=== PATIENT | male | born 1990 | race Caucasian/White ===

== ENCOUNTER 2020-04-05 11:12 | Emergency (ER) | payer BC, SELFPAY ==
[2020-04-05 11:20] VITALS: BP 167/94; PULSE 90; RESP 20; TEMP 36.4; O2SAT 99; BMI 32.6
--- NOTE | 2020-04-05 11:30 | W.ED.EXTPRO ---
HPI - Extremity Problem General: Chief complaint: Extremity Injury, Upper Stated complaint: FINGER LACERATION Time Seen by Provider: 04/05/20 11:30 Source: patient Mode of arrival: ambulatory Limitations: no limitations History of Present Illness: HPI Narrative: Patient presents with amputation of the tip of the left thumb. Patient reports catching the thumb between 2 pieces of metal post. Patient appears well. Patient appears in moderate pain. Review of Systems General: Reports: 10 or more systems reviewed and unremarkable except in HPI and below Musc: Reports: other (Left thumb tip amputation.) Physical Exam Const: COMMON NORMALS: no acute distress and patient oriented x3 GENERAL APPEARANCE: cooperative HENMT: COMMON NORMALS: normocephalic and Normal external nose present HEAD & SCALP: normal to inspection and normocephalic NOSE: Normal external nose present MOUTH: Normal oral and palatal mucosa present Eye: GENERAL EYE: appearance normal, both eyes and all related structures Neck/C-Spine: COMMON NORMALS: full ROM Chest: COMMONS NORMALS: normal inspection of the chest Resp: COMMON NORMALS: normal respiratory effort EFFORT & INSPECTION: Yes able to speak in complete sentences Cardio: COMMON NORMALS: regular rate and regular rhythm RATE: regular rate RHYTHM: regular rhythm GI: COMMON NORMALS: non-tender Back/Pelvis: COMMON NORMALS: thoracic and lumbar spine normal to inspection Extremity: COMMON NORMALS: normal to inspection Neuro: COMMON NORMALS: patient oriented x3 and moves all extremities Psych: COMMON NORMALS: mental status grossly normal and cooperative Skin: NARRATIVE SKIN EXAM: Distal tip of the left thumb is amputated with exposure of the bone and nailbed. Course Vital Signs: Vital signs: Vital Signs Temperature 97.5 F L 04/05/20 11:20 Pulse Rate 68 04/05/20 12:00 Respiratory Rate 20 H 04/05/20 11:20 Blood Pressure 167/94 04/05/20 11:20 Pulse Oximetry 99 04/05/20 11:20 MDM - Extremity (Nontraumatic) MDM Narrative: Medical decision making narrative: Patient presents with injury to the distal left thumb. On exam patient has laceration/avulsion of the tip of the left thumb. Patient has normal range of motion of the thumb. Some nail damage is noted. X-ray noted no injury to the bone but tissue is moved away from the bone. Differential diagnosis includes fracture, foreign body, amputation. Reviewed exam with patient with recommendations for treatment and follow-up. Patient was recommended to follow-up with wound care specialty. Patient reported understanding of care plan and would follow-up with primary care. Discharge Plan Discharge Patient Disposition: Home Clinical Impression: Avulsion of finger tip Qualifiers: Encounter type: initial encounter Qualified Code(s): S61.209A - Unspecified open wound of unspecified finger without damage to nail, initial encounter Condition: Stable Prescriptions: New cephalexin 500 mg capsule 500 mg PO BID 10 Days Qty: 20 RF: 0 hydrocodone-acetaminophen 5-325 mg tablet 1 tab PO Q6H PRN (Reason: pain) Qty: 14 RF: 0 mupirocin 2 % ointment 1 applic topical DAILY Qty: 22 RF: 0 Discharge Orders: Discharge ED (Routine); Ordered 04/05/20 Ordered By: Gurdeep Wade Referrals: Bud Benson MD [Primary Care Provider] - Discharge Diet: Usual diet Discharge Activity: Increase activity as tolerated Patient Instructions: Finger Laceration (ED) Activity Restrictions/Additional Instructions: Keep wound clean and dry. Change initial dressing in 2 days. Apply antibiotic ointment to the wound site daily until healed. Change dressing as needed. Take antibiotics as directed. Follow-up with primary care in 1 week for recheck. Return to the emergency department for new concerns. Coding Level of Care Code ED [employer] for [place] Exam Comprehensive
--- NOTE | 2020-04-05 11:34 | XR_ITS ---
WS: [id number] XR hand LT min 3V* [id number] REASON FOR EXAM: thumb injury FINDINGS: There appears to be amputation of the soft tissues of the distal thumb. The tuft of the distal phalan x of the thumb projects beyond the margin of the soft tissue. The distal phalanx of the thumb appears intact. No other significant abnormality of the left hand. XR/XR hand LT min 3V* [id number] IMPRESSION: Soft tissue amputation of the distal left thumb. The underlying distal phalanx of the thumb appears intact.
[2020-04-05] MEDS: tetanus-dipt-pertussis 0.5 mL SDV IM (11:48)
[2020-04-05] MEDS: HYDROcodone-acetaminophen 7.5-325 mg Tablet 1 TAB PO (11:48)
[2020-04-05] MEDS: silver nitrate applicator 2 EACH TOPICAL (11:58)
[2020-04-05 12:00] VITALS: PULSE 68
[2020-04-05] MEDS: lidocaine 1% INJ 20 mL INJECTION (12:00)
[2020-04-05 12:40] VITALS: BP 148/67; PULSE 82; RESP 18; O2SAT 95
--- NOTE | 2020-04-06 09:42 | DCPLANNER ---
field project manager had message to schedule a follow up appointment for patient with Wound Care. field project manager called the Wound Care clinic, spoke with Caitlin, gave clinic patients information. A follow up appointment was scheduled for Saturday, April 11, 2020 at 8:30 with BETTE Pina. field project manager called patient with appointment information.
--- NOTE | 2020-05-12 08:52 | DCPLANNER ---
Patient had a follow up appointment scheduled for 04.11.20 with Wound Care - patient did not attend appointment.
== END 2020-04-05 12:48 | disposition home or self-care (01) ==
PROVIDERS: Emergency Provider Nurse Practitioner Family; PCP Family Medicine
DX: S61.209A Unspecified open wound of unspecified finger without damage to nail, initial encounter (principal); Z23 Encounter for immunization; W23.0XXA Caught, crushed, jammed, or pinched between moving objects, initial encounter
CPT/HCPCS: 12345; 73130; 90471; 90715; 99281; 99283; A6446